=== PATIENT | male | born 1990 | race American Indian/Alaskan Native ===

== ENCOUNTER 2018-10-20 10:59 | Emergency (ER) | payer MEDICAID ==
[2018-10-20 11:32] VITALS: BP 126/76; PULSE 84; RESP 18; TEMP 98.1; O2SAT 100
--- NOTE | 2018-10-20 11:55 | C.PDOC ---
History Of Present Illness Patient is a 28 year old male, with a PMHx of right hand fracture, who presents to the ED for evaluation of constant and aching right hand pain. Patient states that he has not followed up after his right hand fracture. He denies any recent trauma, injury, numbness, weakness, of tingling sensation. Time Seen by Provider: 10/20/18 11:16 Chief Complaint (Nursing): Finger,Hand,&Wrist History Per: Patient History/Exam Limitations: no limitations Onset/Duration Of Symptoms: Days (past month ) Current Symptoms Are (Timing): Still Present Quality: Aching, "Pain" Recent travel outside of the [place]: No Additional History Per: Patient Past Medical History Reviewed: Historical Data, Nursing Documentation, Vital Signs Vital Signs: Last Vital Signs Temp 98.1 F 10/20/18 11:00 Pulse 84 10/20/18 11:00 Resp 18 10/20/18 11:00 BP 126/76 10/20/18 11:00 Pulse Ox 100 10/20/18 11:00 - Medical History PMH: No Chronic Diseases Surgical History: No Surg Hx Family History: States: Unknown Family Hx - Social History Hx Alcohol Use: Yes Hx Substance Use: No - Immunization History Hx Tetanus Toxoid Vaccination: No Hx Influenza Vaccination: No Hx Pneumococcal Vaccination: No Review Of Systems Musculoskeletal: Positive for: Hand Pain (right hand ) Skin: Negative for: Other (trauma or injury ) Neurological: Negative for: Weakness, Numbness Physical Exam - Physical Exam Appears: Well, Non-toxic, No Acute Distress Skin: Normal Color, Warm, Dry, No Rash, No Ecchymosis Extremity: Normal ROM, Tenderness (mild tenderness over dorsal asepct Right hand overlying 5th MCB, mild deformity noted, no significant edema. FAROM, no neurovascular deficits), Capillary Refill (less than 2 sec to Right hand), No Deformity Neurological/Psych: Oriented x3, Normal Speech, Normal Motor, Normal Sensation, Normal Reflexes ED Course And Treatment O2 Sat by Pulse Oximetry: 100 (on RA) Pulse Ox Interpretation: Normal - Other Rad X-Ray Right Hand X-Ray: Viewed By Me, Read By Radiologist Interpretation: FINDINGS: BONES: No acute displaced fracture. JOINTS: No dislocation. SOFT TISSUES: Unremarkable. No evidence of radiopaque foreign body. OTHER FINDINGS: None. IMPRESSION: No acute displaced fracture, dislocation, or significant joint effusion identified. If symptoms persist, or if there is continued clinical concern, x-ray follow-up in 7-10 days should be considered. Progress Note: X-Ray Hand ordered and reviewed. Disposition Counseled Patient/Family Regarding: Diagnosis, Need For Followup - Disposition Referrals: [facility] [Outside] [facility] [Outside] Freddie Carreon III, MD [Staff Provider] - Disposition: HOME/ ROUTINE Disposition Time: 11:45 Condition: STABLE Additional Instructions: Follow up with Orthopedist in 3-4 days for further evaluation and treatment return if any new changes Prescriptions: Ibuprofen [Motrin Tab] 600 mg PO BID #20 tab Instructions: Hand Pain Forms: [facility] ([place]), Work Excuse - Clinical Impression Clinical Impression: Arthralgia of hand, Hand fracture - 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 - Scribe Statement The provider has reviewed the documentation as recorded by the Elizabeth Leblanc All medical record entries made by the Keenanibdenice were at my direction and personally dictated by me. I have reviewed the chart and agree that the record accurately reflects my personal performance of the history, physical exam, medical decision making, and the department course for this patient. I have also personally directed, reviewed, and agree with the discharge instructions and disposition.
--- NOTE | 2018-10-20 13:24 | RAD ---
PROCEDURE: Right Hand Radiographs. HISTORY: pain hx of fx COMPARISON: None available. FINDINGS: BONES: No acute displaced fracture. JOINTS: No dislocation. SOFT TISSUES: Unremarkable. No evidence of radiopaque foreign body. OTHER FINDINGS: None. IMPRESSION: No acute displaced fracture, dislocation, or significant joint effusion identified. If symptoms persist, or if there is continued clinical concern, x-ray follow-up in 7-10 days should be considered.
== END 2018-10-20 12:02 | disposition home or self-care (01) ==
LOC: MERGE 10:59 → C.ER 10:59
DX: M79.641 Pain in right hand (principal); S62.91XA Unspecified fracture of right hand, initial encounter for closed fracture; X58.XXXA Exposure to other specified factors, initial encounter